=== PATIENT | female | born 2000 | race African-American/Black ===

== ENCOUNTER 2020-08-01 13:21 | Emergency (ER) | payer BC, SELFPAY ==
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
[2020-08-01 13:34] VITALS: BP 118/96; PULSE 93; RESP 20; TEMP 36.6; O2SAT 98
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
== END 2020-08-01 15:40 | disposition home or self-care (01) ==
PROVIDERS: Emergency Provider Emergency Medicine
DX: S05.12XA Contusion of eyeball and orbital tissues, left eye, initial encounter (principal); Y04.2XXA Assault by strike against or bumped into by another person, initial encounter
CPT/HCPCS: 70486; 71046; 71100; 99284